=== PATIENT | female | born 1980 | race Caucasian/White ===

== ENCOUNTER → 2017-04-15 | Outpatient (CLI) | payer OTHER ==
[~2017-04-15] VITALS: Ht 177.8 cm; Wt 54.4 kg
[~2017-04-15] MED LIST: SINCALIDE 1.09 MCG in IV NORMAL SALINE 50ML 30 ML IV ONE
--- NOTE | 2017-04-15 11:53 | RAD ---
Indication nausea. Abdominal discomfort. Hepatobiliary scan was performed. 5.5 mCi of technetium labeled Choletec was administered. 1.1 mcg of CCK was diluted in saline and administered over several minutes. Following the CCK administration a gallbladder ejection fraction calculation was made. There is normal uptake of the radiopharmaceutical in the liver. Normal activity is seen in the gallbladder and biliary ducts. Following the CCK administration the estimated gallbladder ejection fraction is 52% which is normal. IMPRESSION: Normal study
== END | disposition home or self-care (01) ==
LOC: NM 08:29
PROVIDERS: ATTEND Physician Assistant
DX: K50.90 Crohn's disease, unspecified, without complications (principal)
CPT/HCPCS: 78226; 96374; 96375; A9537; J2805